=== PATIENT | male | born 1975 | race Caucasian/White ===

== ENCOUNTER 2018-01-17 21:30 | Emergency (ER) | payer MEDICAID ==
[~2018-01-17] VITALS: Ht 188 cm; Wt 182.0 kg
[~2018-01-17 21:30] MED LIST: DESV50TA PO; FURO-93 PO; RISP3TAB3 PO
[2018-01-17 21:35] VITALS: BP 158/106
[2018-01-17] MEDS ORDERED: OXYcodone/APAP 7.5/325MG TABLET PO ONE (22:30)
[2018-01-17] MEDS ORDERED: OXYcodone/APAP 7.5/325MG TABLET ONE (22:33)
== END 2018-01-17 22:39 | disposition home or self-care (01) ==
LOC: ED 22:33
DX: M25.572 Pain in left ankle and joints of left foot (principal); F17.200 Nicotine dependence, unspecified, uncomplicated; I10 Essential (primary) hypertension; M10.9 Gout, unspecified
CPT/HCPCS: 99283